=== PATIENT | female | born 1985 | race African-American/Black ===

== ENCOUNTER 2018-05-16 06:03 | Emergency (ER) | payer SELFPAY ==
[~2018-05-16] VITALS: Ht 170.2 cm; Wt 70.3 kg
--- NOTE | 2018-05-16 06:20 | NUR ---
BIB SELF C/O BREAST LUMP ON RIGHT SIDE AFTER 3 WEEKS OF HAVING PERIOD. C/O CHEST PAIN "ON AND OFF FOR A COUPLE MONTHS". NUMBNESS IN LEFT ARM. PT IS AOX4, VSS, RESPIRATIONS EVEN AND UNLABORED. NO ACUTE DISTRESS NOTED. SKIN WARM, DRY, INTACT. READY FOR EVAL.
--- NOTE | 2018-05-16 06:22 | NUR ---
DR SOTOMAYOR AT BEDSIDE
--- NOTE | 2018-05-16 06:30 | NUR ---
URINE OBTAINED AND SENT TO LAB
[2018-05-16 07:11] LABS: BASOPHILS % (AUTO) 0.3 % (0.0-2.0); EOSINOPHILS % (AUTO) 0.8 % (0.0-6.0); HEMATOCRIT 37 % (33-45); HEMOGLOBIN 12.3 g/dL (11.5-14.8); LYMPHOCYTES # (AUTO) 1.3 /CMM (0.8-4.8); LYMPHOCYTES % (AUTO) 21.7 % (20.0-44.0); MEAN CORPUSCULAR HGB CONC 33 g/dl (31.0-36.0); MEAN CORPUSCULAR VOLUME 92 fL (82-100); MONOCYTES # (AUTO) 0.5 /CMM (0.1-1.30); MONOCYTES % (AUTO) 7.4 % (2.0-12.0); NEUTROPHILS # (AUTO) 4.3 /CMM (1.8-8.9); NEUTROPHILS % (AUTO) 69.8 % (43.0-81.0); PLATELET COUNT (AUTO) 276 /CMM (150-450); RED BLOOD CELL COUNT(AUTO) 4.07 MIL/uL (4.0-5.2); WHITE BLOOD COUNT (AUTO) 6.2 K/uL (4.3-11.0)
[2018-05-16 07:16] LABS: APPEARANCE,URINE CLEAR (CLEAR); BILIRUBIN,URINE NEGATIVE (NEGATIVE); BLOOD, URINE NEGATIVE Ery/uL (NEGATIVE); COLOR,URINE YELLOW (YELLOW); KETONES,URINE NEGATIVE (NEGATIVE); LEUKOCYTE ESTERASE ,URINE NEGATIVE (NEGATIVE); NITRITE, URINE NEGATIVE (NEGATIVE); PROTEIN,URINE NEGATIVE (NEGATIVE); UGLUCOSE NEGATIVE (NEGATIVE); UROBILINOGEN,URINE 0.2 EU/dL (0.2)
[2018-05-16 07:21] LABS: CALCIUM, SERUM 9.1 mg/dL (8.5-10.1); CREATININE 0.9 mg/dL (0.6-1.3); POTASSIUM 3.9 mmol/L (3.5-5.1)
--- NOTE | 2018-05-16 07:29 | NUR ---
RECEIVED REPORT FROM JORDYN LA FOR [facility]
--- NOTE | 2018-05-16 07:38 | NUR ---
RADIOLOGY AT BEDSIDE FOR CXR
--- NOTE | 2018-05-16 08:06 | NUR ---
Patient discharged to home in stable condition. Written and verbal after care instructions given. Patient verbalizes understanding of instruction. PT AMBULATORY WITH STEADY GAIT.
[2018-05-16 08:07] VITALS: BP 124/75
== END 2018-05-16 08:07 | disposition home or self-care (01) ==
LOC: ER 06:05
DX: N92.0 Excessive and frequent menstruation with regular cycle (principal)
CPT/HCPCS: 36415; 71045; 80048; 81001; 84443; 84484; 84703; 85025; 93005; 99284; A4606; Z7610; 81000-TC

== ENCOUNTER 2023-04-26 23:01 | Emergency (ER) | payer BC, OTHER ==
[~2023-04-26] VITALS: Ht 167.6 cm; Wt 68.0 kg
[2023-04-27] MEDS ORDERED: EPINEPHRINE (1:1000) 1 MG/ML AMPUL SUBCUT ONE
[2023-04-27] MEDS ORDERED: predniSONE 10 MG TABLET PO ONE
[2023-04-27] MEDS ORDERED: EPINEPHRINE (1:1000) 1 MG/ML AMPUL ONE
[2023-04-27] MEDS ORDERED: diphenhydrAMINE HCL 50 MG CAPSULE PO ONE
[2023-04-27] MEDS ORDERED: diphenhydrAMINE HCL 50 MG CAPSULE ONE
[2023-04-27] MEDS ORDERED: predniSONE 20 MG TABLET ONE
[2023-04-27] MEDS ORDERED: PRED50TA PO (00:30)
[2023-04-27] MEDS ORDERED: EPIN0.3P3 IM (00:30)
[2023-04-27 00:45] VITALS: BP 122/72; TEMP 98.3; O2SAT 98
== END 2023-04-27 00:46 | disposition home or self-care (01) ==
LOC: ER 23:03
DX: T78.40XA Allergy, unspecified, initial encounter (principal); X58.XXXA Exposure to other specified factors, initial encounter
CPT/HCPCS: 99283; Q0163; J7512; J0171